=== PATIENT | male | born 1995 | race Caucasian/White ===

== ENCOUNTER 2021-09-06 13:53 | Emergency (ER) | payer OTHER ==
[~2021-09-06] VITALS: Ht 165.1 cm; Wt 86.5 kg
[2021-09-06 14:16] VITALS: BP 124/72
[2021-09-06] MEDS ORDERED: IBUPROFEN 400MG TABLET PO ONE (15:00)
[2021-09-06] MEDS ORDERED: ACETAMINOPHEN 325MG TABLET PO ONE (15:00)
[2021-09-06] MEDS ORDERED: IPRATROPIUM BROMIDE (0.02%) 0.5MG/2.5ML NEB HHN STA (15:03)
[2021-09-06] MEDS ORDERED: PREDNISONE 20MG TABLET PO STA (15:03)
[2021-09-06] MEDS ORDERED: ALBUTEROL (0.083%) 2.5MG/3ML NEB HHN SCH (15:30)
[2021-09-06] MEDS ORDERED: AMOXICILLIN/POTASSIUM CLAVULANATE 875/125MG TAB PO ONE (16:00)
[2021-09-06] MEDS ORDERED: AZITHROMYCIN 500 MG TABLET PO ONE (16:00)
[2021-09-06] MEDS ORDERED: AMOX-424 MT (16:03)
[2021-09-06] MEDS ORDERED: AZIT250T12 MT (16:04)
[2021-09-06] MEDS ORDERED: IBUP-2028 MT (16:06)
[2021-09-06] MEDS ORDERED: BENZ-16 MT (16:06)
[2021-09-06] MEDS ORDERED: TOPUD PO (16:06)
[2021-09-06] MEDS ORDERED: NICO-645 TP (16:06)
== END 2021-09-06 16:20 | disposition left against medical advice (07) ==
LOC: ER 13:53
DX: J18.9 Pneumonia, unspecified organism (principal); R07.89 Other chest pain; R05.9 Cough, unspecified; F17.210 Nicotine dependence, cigarettes, uncomplicated; F12.10 Cannabis abuse, uncomplicated; J45.909 Unspecified asthma, uncomplicated; Z86.16 Personal history of COVID-19
CPT/HCPCS: 71046; 99283; J7512